=== PATIENT | female | born 1975 | race Caucasian/White ===

== ENCOUNTER 2018-05-10 10:17 | Inpatient (IN) | payer MEDICAID ==
[~2018-05-10] VITALS: Ht 160 cm; Wt 73.0 kg
[2018-05-10 10:22] VITALS: BP 163/91
[2018-05-10 11:10] LABS: BARBITURATE, URINE NEG. ng/ml (NEG <=200); BENZODIAZEPINE, URINE NEG. ng/mL (NEG <=200); CANNABINOID, URINE NEG. ng/mL (NEG <=50); COCAINE, URINE NEG. ng/mL (NEG <=300); OPIATE, URINE NEG. ng/mL (NEG <=2000); PHENCYCLIDINE SCREEN,URINE NEG. ng/mL (NEG <=25)
[2018-05-10 11:31] LABS: BASOPHILS % (AUTO) 0.4 % (0.0-2.0); EOSINOPHILS # (AUTO) 0.1 K/uL (0-0.4); EOSINOPHILS % (AUTO) 1.8 % (0.0-4.0); HEMATOCRIT 43.6 % (36-48); HEMOGLOBIN 14.4 g/dL (12.0-16.0); LYMPHOCYTES # (AUTO) 2.2 K/uL (2.5-16.5); LYMPHOCYTES % (AUTO) 27.9 % (20.5-51.1); MEAN CORPUSCULAR HEMOGLOBIN 31 pg (27-31); MEAN CORPUSCULAR HGB CONC 33 g/dL (33-37); MONOCYTES # (AUTO) 0.5 K/uL (0.8-1.0); MONOCYTES % (AUTO) 5.9 % (1.7-9.3); PLATELET COUNT (AUTO) 169 K/uL (140-450); RED BLOOD CELL COUNT(AUTO) 4.63 MIL/uL (4.20-5.40); RED CELL DISTRIBUTION WIDTH 12.8 % (11.6-13.7); WHITE BLOOD COUNT (AUTO) 7.8 K/uL (4.8-10.8)
[2018-05-10 11:44] LABS: ANION GAP 11.9 (8-16); CARBON DIOXIDE 26.9 mmol/L (21-32); CREATININE 1.1 mg/dL (0.6-1.3); POTASSIUM 3.8 mmol/L (3.5-5.1)
[2018-05-10 11:50] LABS: ALBUMIN 3.5 g/dL (3.4-5.0); SALICYLATE < 2.8 mg/dL (2.8-20.0); TOTAL BILIRUBIN 0.3 mg/dL (0.0-1.0)
[2018-05-10 11:58] LABS: CREATINE KINASE MB 0.3 ng/mL (0-3.6)
[2018-05-10] MEDS ORDERED: ONDANSETRON 4 MG/2 ML VIAL IVP ONE (12:45)
[2018-05-10] MEDS ORDERED: ONDANSETRON 4 MG/2 ML VIAL IVP PRN (13:45)
[2018-05-10 16:00] VITALS: BP 133/84
[2018-05-10 16:14] LABS: FREE T4 (FREE THYROXINE) 1.02 ng/dL (0.76-1.46); MAGNESIUM 1.9 mg/dL (1.8-2.4); THYROID STIMULATING HORMONE 3.01 uIU/mL (0.34-3.74)
[2018-05-10 17:14] LABS: PROTHROMBIN TIME 9.6 secs (10.8-13.4)
[2018-05-10] MEDS: NACL 0.9% 1,000 ML IV SCH (17:55)
[2018-05-10 20:00] VITALS: BP 110/70
[2018-05-10] MEDS ORDERED: INFLUENZA VIRUS VACCINE QUAD 0.5 ML SYR IMVAC PRN (23:10)
[2018-05-11] VITALS: BP 140/72
[2018-05-11 04:00] VITALS: BP 128/73
[2018-05-11] MEDS: ACETAMINOPHEN 325 MG TAB PO PRN ×2 (06:28→15:32)
[2018-05-11 07:43] LABS: CHOL/HDL RATIO 4.6 (1-4.5)
[2018-05-11 08:00] VITALS: BP 149/91
[2018-05-11 08:15] LABS: BASOPHILS % (AUTO) 0.5 % (0.0-2.0); EOSINOPHILS # (AUTO) 0.2 K/uL (0-0.4); HEMATOCRIT 42.7 % (36-48); HEMOGLOBIN 13.8 g/dL (12.0-16.0); LYMPHOCYTES # (AUTO) 3.4 K/uL (2.5-16.5); LYMPHOCYTES % (AUTO) 40.9 % (20.5-51.1); MEAN CORPUSCULAR HEMOGLOBIN 31 pg (27-31); MEAN CORPUSCULAR HGB CONC 32 g/dL (33-37); MEAN CORPUSCULAR VOLUME 95.1 fL (80-94); MONOCYTES # (AUTO) 0.7 K/uL (0.8-1.0); MONOCYTES % (AUTO) 8.4 % (1.7-9.3); NEUTROPHILS % (AUTO) 47.2 % (42.2-75.2); PLATELET COUNT (AUTO) 180 K/uL (140-450); RED BLOOD CELL COUNT(AUTO) 4.49 MIL/uL (4.20-5.40); RED CELL DISTRIBUTION WIDTH 12.9 % (11.6-13.7); WHITE BLOOD COUNT (AUTO) 8.4 K/uL (4.8-10.8)
[2018-05-11] MEDS: HYDROcodone/APAP 5/325 MG 1 TAB TAB PO PRN ×4 (08:42→20:28)
[2018-05-11] MEDS: SERTRALINE 50 MG TAB PO SCH (08:42)
[2018-05-11 08:47] LABS: ANION GAP 14.9 (8-16); CARBON DIOXIDE 26.2 mmol/L (21-32); CREATININE 1.1 mg/dL (0.6-1.3); POTASSIUM 4.1 mmol/L (3.5-5.1)
[2018-05-11 08:49] LABS: MAGNESIUM 1.6 mg/dL (1.8-2.4); PHOSPHORUS 3.9 mg/dL (2.5-4.9)
[2018-05-11] MEDS: NACL 0.9% 1,000 ML IV SCH ×2 (10:45→12:31)
[2018-05-11 20:00] VITALS: BP 128/67
[2018-05-12] MEDS: HYDROcodone/APAP 5/325 MG 1 TAB TAB PO PRN ×3 (00:49→20:28)
[2018-05-12 08:00] VITALS: BP 116/76
[2018-05-12] MEDS: NACL 0.9% 1,000 ML IV SCH (08:41)
[2018-05-12] MEDS: SERTRALINE 50 MG TAB PO SCH (08:41)
[2018-05-12] MEDS ORDERED: MAG SULF 2000 MG/WATER PREMIX 50 ML IV SCH (10:00)
[2018-05-12 20:00] VITALS: BP 113/59
[2018-05-13] MEDS: HYDROcodone/APAP 5/325 MG 1 TAB TAB PO PRN (01:18)
[2018-05-13] MEDS: NACL 0.9% 1,000 ML IV SCH (05:55)
[2018-05-13 06:41] LABS: BASOPHILS # (AUTO) 0.1 K/uL (0.00-0.22); BASOPHILS % (AUTO) 0.7 % (0.0-2.0); EOSINOPHILS # (AUTO) 0.3 K/uL (0-0.4); EOSINOPHILS % (AUTO) 2.9 % (0.0-4.0); HEMATOCRIT 44.6 % (36-48); LYMPHOCYTES # (AUTO) 3.1 K/uL (2.5-16.5); LYMPHOCYTES % (AUTO) 32.5 % (20.5-51.1); MEAN CORPUSCULAR HEMOGLOBIN 32 pg (27-31); MEAN CORPUSCULAR HGB CONC 34 g/dL (33-37); MEAN CORPUSCULAR VOLUME 93.9 fL (80-94); MONOCYTES # (AUTO) 0.7 K/uL (0.8-1.0); MONOCYTES % (AUTO) 7.6 % (1.7-9.3); NEUTROPHILS # (AUTO) 5.4 K/uL (1.8-7.7); NEUTROPHILS % (AUTO) 56.3 % (42.2-75.2); PLATELET COUNT (AUTO) 180 K/uL (140-450); RED BLOOD CELL COUNT(AUTO) 4.74 MIL/uL (4.20-5.40); RED CELL DISTRIBUTION WIDTH 12.7 % (11.6-13.7); WHITE BLOOD COUNT (AUTO) 9.6 K/uL (4.8-10.8)
[2018-05-13 07:05] LABS: ANION GAP 10.7 (8-16); CARBON DIOXIDE 28.1 mmol/L (21-32); POTASSIUM 3.8 mmol/L (3.5-5.1)
[2018-05-13 07:12] LABS: PHOSPHORUS 3.8 mg/dL (2.5-4.9)
[2018-05-13 08:00] VITALS: BP 121/76
[2018-05-13] MEDS: SERTRALINE 50 MG TAB PO SCH ×2 (08:57→09:29)
[2018-05-13] MEDS ORDERED: SERT50TA PO (13:30)
[2018-05-13 16:00] VITALS: BP 124/81
== END 2018-05-13 19:07 | disposition home or self-care (01) | DRG 812 ==
LOC: MED 10:17 → EDBD 10:17 → MTU 13:43 → UNDOADMIN 13:43 → MIC 13:43 → MTU 05-11 11:49
PROVIDERS: ADMIT General Practice; ATTEND General Practice
DX: T45.0X2A Poisoning by antiallergic and antiemetic drugs, intentional self-harm, initial encounter (principal); G92 Toxic encephalopathy; F33.2 Major depressive disorder, recurrent severe without psychotic features; R45.851 Suicidal ideations; E78.5 Hyperlipidemia, unspecified; E83.42 Hypomagnesemia; Z23 Encounter for immunization; Z88.1 Allergy status to other antibiotic agents; Y92.89 Other specified places as the place of occurrence of the external cause; Z98.51 Tubal ligation status
CPT/HCPCS: 36415; 71045; 80048; 80053; 80305; 81025; 82140; 82150; 82550; 82553; 82948; 83036; 83690; 83735; 83880; 84100; 84439; 84443; 84484; 84702; 85025; 85610; 85730; 87081; 90658; 93005; 96374; 99291; G0480; G0482; J2405; J3475; J7030; Q0092